=== PATIENT | male | born 1960 | race Caucasian/White ===

== ENCOUNTER → 2019-12-10 | Outpatient (CLI) | payer OTHER ==
[~2019-12-10] MED LIST: GADOTERATE 10 MMOL/20 ML SYR ONE
== END | disposition home or self-care (01) ==
LOC: RAD 16:22
PROVIDERS: ATTEND Emergency Medicine
DX: C71.4 Malignant neoplasm of occipital lobe (principal); R22.0 Localized swelling, mass and lump, head
CPT/HCPCS: 70543; 70553; A9575

== ENCOUNTER 2019-12-18 14:07 | Outpatient (CLI) | payer OTHER ==
[2019-12-18 15:41] LABS: BASOPHILS # (AUTO) 0.05 x10^3/uL (0-0.1); BASOPHILS % (AUTO) 1 % (0-1); EOSINOPHILS # (AUTO) 0.05 x10^3/uL (0-0.4); EOSINOPHILS % (AUTO) 1 % (1-7); LYMPHOCYTES # (AUTO) 1.33 x10^3/uL (1-3.4); LYMPHOCYTES % (AUTO) 17 % (22-44); MD NO; MEAN CORPUSCULAR HEMOGLOBIN 32.7 pg (27.5-34.5); MEAN CORPUSCULAR HGB CONC 33.8 g/dL (33.2-36.2); MEAN CORPUSCULAR VOLUME 96.7 fL (81-97); MEAN PLATELET VOLUME 8.9 fL (7.4-10.4); MONOCYTES # (AUTO) 0.55 x10^3/uL (0.2-0.8); MONOCYTES % (AUTO) 7 % (2-9); NEUTROPHILS # (AUTO) 5.98 x10^3/uL (1.8-6.8); NEUTROPHILS % (AUTO) 75 % (42-75); PLATELET COUNT 254 x10^3/uL (130-400); RED BLOOD COUNT 4.98 x10^6/uL (4.38-5.82); RED CELL DISTRIBUTION WIDTH 13.1 % (9.4-14.8)
[2019-12-18 15:43] LABS: MICROSCOPIC INDICATED
[2019-12-18 15:45] LABS: ANION GAP 6 mmol/L (5-15); CALCIUM 9.2 mg/dL (8.5-10.1); CHLORIDE 108 mmol/L (98-107); CREATININE 1.07 mg/dL (0.7-1.3)
[2019-12-18 15:47] LABS: INTERNATIONAL NORMALIZED RATIO 1.04 (0.93-1.1)
[2019-12-18] MEDS ORDERED: None at this Time (15:49)
[2019-12-18 16:01] LABS: CULTURE INDICATED? NO
== END 2019-12-18 23:59 | disposition home or self-care (01) ==
LOC: STAR 14:07
PROVIDERS: ATTEND Neurological Surgery
DX: Z01.818 Encounter for other preprocedural examination (principal); R22.1 Localized swelling, mass and lump, neck
CPT/HCPCS: 36415; 80048; 81001; 85025; 85610; 85730

== ENCOUNTER 2019-12-26 10:12 | Day surgery (SDC) | payer OTHER ==
[~2019-12-26] VITALS: Ht 188 cm; Wt 100.3 kg
[~2019-12-26 10:12] MED LIST changes: -GADOTERATE 10 MMOL/20 ML SYR ONE; +None at this Time
[2019-12-26] MEDS ORDERED: LACTATED RINGERS 1,000 ML IV SCH (10:31)
[2019-12-26 10:32] VITALS: BP 115/79
[2019-12-26] MEDS ORDERED: GABAPENTIN 300 MG CAPSULE PO ONE (11:00)
[2019-12-26] MEDS ORDERED: ACETAMINOPHEN 500 MG TABLET PO ONE (11:00)
[2019-12-26] MEDS ORDERED: BUPIVACAINE/PF 0.5% ONE (11:10)
[2019-12-26] MEDS ORDERED: VANCOMYCIN 1,000 MG ONE (11:10)
[2019-12-26] MEDS ORDERED: EPINEPHRINE 1 MG/ML, 1ML ONE (11:10)
[2019-12-26] MEDS ORDERED: BACITRACIN 50,000 UNIT ONE (11:11)
[2019-12-26] MEDS ORDERED: hydrALAzine 20 MG/ML, 1ML IV PRN (11:30)
[2019-12-26] MEDS ORDERED: ACETAMINOPHEN 325 MG TABLET PO PRN (11:30)
[2019-12-26] MEDS ORDERED: HYDROmorphone 2 MG/ML, 1ML IVPush PRN (11:30)
[2019-12-26] MEDS ORDERED: MEPERIDINE/PF 25MG/ML,1ML IVPush PRN (11:30)
[2019-12-26] MEDS ORDERED: OXYcodone 5 MG/5 ML ORAL.SOL UDC PO PRN (11:30)
[2019-12-26] MEDS ORDERED: PROMETHAZINE 25 MG/ML, 1ML IV PRN (11:30)
[2019-12-26] MEDS ORDERED: FENTANYL PF 100 MCG/2ML IV PRN (11:30)
[2019-12-26] MEDS ORDERED: MIDAZOLAM 1 MG/ML, 2ML ONE (11:56)
[2019-12-26] MEDS ORDERED: FENTANYL PF 250 MCG/5ML ONE (11:56)
[2019-12-26] MEDS ORDERED: ONDANSETRON 2MG/ML, 2ML ONE ×2 (12:00→13:10)
[2019-12-26] MEDS ORDERED: SUGAMMADEX 200 MG/2 ML IVPush ONE (12:00)
[2019-12-26] MEDS ORDERED: PHENYLEPHRINE 10 MG/ML ONE (12:00)
[2019-12-26] MEDS ORDERED: PROPOFOL 50 ML ONE (12:17)
[2019-12-26] MEDS ORDERED: DEXAMETHASONE 4 MG/ML, 1ML ONE (13:10)
[2019-12-26] MEDS ORDERED: KETOROLAC 30 MG/1 ML ONE (13:10)
[2019-12-26] MEDS ORDERED: PROPOFOL 10 MG/ML, 20ML ONE (13:10)
[2019-12-26] MEDS ORDERED: LIDOCAINE-MPF 2% ,5ML ONE (13:10)
[2019-12-26] MEDS ORDERED: ROCURONIUM 10MG/ML,5ML ONE (13:10)
[2019-12-26] MEDS ORDERED: CEFAZOLIN 1,000 MG ONE (13:10)
== END 2019-12-26 16:20 | disposition home or self-care (01) ==
LOC: OR 10:12
PROVIDERS: ATTEND Neurological Surgery
DX: R22.1 Localized swelling, mass and lump, neck (principal); D36.11 Benign neoplasm of peripheral nerves and autonomic nervous system of face, head, and neck; Z79.82 Long term (current) use of aspirin; Z79.1 Long term (current) use of non-steroidal anti-inflammatories (NSAID); Z79.899 Other long term (current) drug therapy; Z83.3 Family history of diabetes mellitus; Z82.49 Family history of ischemic heart disease and other diseases of the circulatory system
CPT/HCPCS: 21557; 88305; J0171; J0690; J1100; J1885; J2370; J2405; J2704; J7120; J3370

== ENCOUNTER 2020-01-09 13:37 | Outpatient (CLI) | payer OTHER | END 2020-01-09 23:59 | disposition home or self-care (01) | LOC: RAD 13:37 | PROVIDERS: ATTEND Nurse Practitioner Critical Care Medicine | DX: M48.07 Spinal stenosis, lumbosacral region (principal); M54.5 Low back pain | CPT/HCPCS: 72120 ==